=== PATIENT | male | born 1975 ===

== ENCOUNTER 2017-08-25 06:07 | Day surgery (SDC) | payer BC ==
[~2017-08-25] VITALS: Ht 177.8 cm; Wt 82.1 kg
[2017-08-25] VITALS (10 sets, daily range): BP systolic 102–137; BP diastolic 60–75
[2017-08-25 08:09] LABS: BASOPHILS % (AUTO) 0.8 % (0.0-2.0); EOSINOPHILS % (AUTO) 0.1 % (0.0-3.0); LYMPHOCYTES % (AUTO) 20.7 % (20.0-45.0); MEAN CORPUSCULAR HEMOGLOBIN 31.1 PG (27.0-31.0); MEAN CORPUSCULAR HGB CONC 34.7 G/DL (32.0-36.0); MEAN CORPUSCULAR VOLUME 90 FL (80-99); MEAN PLATELET VOLUME 6.8 FL (6.5-10.1); MONOCYTES % (AUTO) 6.5 % (1.0-10.0); NEUTROPHILS % (AUTO) 71.9 % (45.0-75.0); PLATELET COUNT 234 K/UL (150-450); RED BLOOD COUNT 4.82 M/UL (4.70-6.10); RED CELL DISTRIBUTION WIDTH 10.5 % (11.6-14.8); WHITE BLOOD COUNT 7.2 K/UL (4.8-10.8)
[2017-08-25] MEDS ORDERED: Cyclopentolate 1% Opth Sol 2ml ONE (08:34)
[2017-08-25] MEDS ORDERED: Phenylephrine 2.5% Op 2ml Soln ONE (08:34)
[2017-08-25] MEDS ORDERED: Tropicamide 1% Opth 15ml Soln ONE (08:35)
[2017-08-25] MEDS ORDERED: Tetracaine 0.5% Opth 4ml Soln ONE (08:35)
[2017-08-25 08:36] LABS: ALANINE AMINOTRANSFERASE 25 U/L (12-78); ALBUMIN/GLOBULIN RATIO 1.3 (1.0-2.7); ANION GAP 10 mmol/L (5-15); ASPARTATE AMINO TRANSFERASE 21 U/L (15-37); CALCIUM 8.9 MG/DL (8.5-10.1); CARBON DIOXIDE 26 MMOL/L (21-32); CHLORIDE 105 MMOL/L (98-107); CREATININE 0.9 MG/DL (0.55-1.30); GLOMERULAR FILTRATION RATE > 60 mL/min (>60); POTASSIUM 3.7 MMOL/L (3.5-5.1); SODIUM 141 MMOL/L (136-145); TOTAL PROTEIN 7.4 G/DL (6.4-8.2)
[2017-08-25 08:38] LABS: BILIRUBIN,DIRECT 0.2 MG/DL (0.0-0.3)
[2017-08-25] MEDS: Cyclopentolate 1% Opth Sol 2ml RIGHT EYE SCH ×3 (08:39→08:56)
[2017-08-25] MEDS: Tropicamide 1% Opth 15ml Soln RIGHT EYE SCH ×3 (08:41→08:56)
[2017-08-25] MEDS: Phenylephrine 2.5% Op 2ml Soln RIGHT EYE SCH ×3 (08:42→08:56)
[2017-08-25] MEDS: Tetracaine 0.5% Opth 4ml Soln RIGHT EYE SCH ×2 (08:42→08:56)
[2017-08-25 08:56] LABS: INR 1.1 (0.9-1.1); PROTHROMBIN TIME 11.4 SEC (9.30-11.50)
--- NOTE | 2017-08-25 09:40 | Anethesia Preoperative Eval ---
Anesthesia Pre-op PMH/ROS General Date of Evaluation: Aug 25, 2017 Time of Evaluation: 10:15 Anesthesiologist: Natan ASA Score: ASA 1 Mallampati Score Class I : Soft palate, uvula, fauces, pillars visible Class II: Soft palate, uvula, fauces visible Class III: Soft palate, base of uvula visible Class IV: Only hard plate visible Mallampati Classification: Class II Surgeon: pramod Diagnosis: reinal detachment Surgical Procedure: Right eye scleral buckle Anesthesia History: none Family History: no anesthesia problems Allergies: Coded Allergies: No Known Allergies (Unverified , 08/25/17) Past Medical History Cardiovascular: Denies: HTN, CAD, DC, valve dz, arrhythmia, other Pulmonary: Denies: asthma, COPD, CLAUDIA, other Gastrointestinal/Genitourinary: Denies: GERD, CRI, ESRD, other Neurologic/Psychiatric: Denies: dementia, CVA, depression/anxiety, TIA, other Endocrine: Denies: DM, hypothyroidism, steroids, other HEENT: Reports: other - right eye retinal detachment Hematology/Immune: Denies: anemia, DVT, bleeding disorder, other Musculoskeletal/Integumentary: Denies: OA, RA, DJD, DDD, edema, other Anesthesia Pre-op Phys. Exam Physician Exam Last Vital Signs Date Time Temp Pulse Resp B/P (MAP) Pulse Ox O2 Delivery O2 Flow Rate FiO2 08/25/17 07:43 98.2 67 19 137/70 97 Room Air Constitutional: NAD Neurologic: CN 2-12 intact Cardiovascular: RRR Respiratory: CTA Gastrointestinal: S/NT/ND Airway Exam Mallampati Score: Class I MO: full ROM: full Teeth: missing - missing teeth on back left lower bottom, other - chipped tooth top right Dentures: no upper, no lower Anesthesia Pre-op A/P Labs Hematology Test 08/25/17 07:35 White Blood Count 7.2 K/UL (4.8-10.8) Red Blood Count 4.82 M/UL (4.70-6.10) Hemoglobin 15.0 G/DL (14.2-18.0) Hematocrit 43.3 % (42.0-52.0) Mean Corpuscular Volume 90 FL (80-99) Mean Corpuscular Hemoglobin 31.1 PG (27.0-31.0) H Mean Corpuscular Hemoglobin Concent 34.7 G/DL (32.0-36.0) Red Cell Distribution Width 10.5 % (11.6-14.8) L Platelet Count 234 K/UL (150-450) Mean Platelet Volume 6.8 FL (6.5-10.1) Neutrophils (%) (Auto) 71.9 % (45.0-75.0) Lymphocytes (%) (Auto) 20.7 % (20.0-45.0) Monocytes (%) (Auto) 6.5 % (1.0-10.0) Eosinophils (%) (Auto) 0.1 % (0.0-3.0) Basophils (%) (Auto) 0.8 % (0.0-2.0) Coagulation Test 08/25/17 07:35 Prothrombin Time 11.4 SEC (9.30-11.50) Prothromb Time International Ratio 1.1 (0.9-1.1) Activated Partial Thromboplast Time 29 SEC (23-33) Chemistry Test 08/25/17 07:35 Sodium Level 141 MMOL/L (136-145) Potassium Level 3.7 MMOL/L (3.5-5.1) Chloride Level 105 MMOL/L (98-107) Carbon Dioxide Level 26 MMOL/L (21-32) Anion Gap 10 mmol/L (5-15) Blood Urea Nitrogen 9 mg/dL (7-18) Creatinine 0.9 MG/DL (0.55-1.30) Estimat Glomerular Filtration Rate > 60 mL/min (>60) Glucose Level 84 MG/DL (74-106) Calcium Level 8.9 MG/DL (8.5-10.1) Total Bilirubin 1.1 MG/DL (0.2-1.0) H Direct Bilirubin 0.2 MG/DL (0.0-0.3) Aspartate Amino Transf (AST/SGOT) 21 U/L (15-37) Alanine Aminotransferase (ALT/SGPT) 25 U/L (12-78) Alkaline Phosphatase 60 U/L (46-116) Total Protein 7.4 G/DL (6.4-8.2) Albumin 4.2 G/DL (3.4-5.0) Globulin 3.2 g/dL Albumin/Globulin Ratio 1.3 (1.0-2.7) Studies Pre-op Studies: EKG - NSR 68 BPM with sinus arhythmias Risk Assessment & Plan Assessment: A&Ox3 Plan: General per surgeon request Status Change Before Surgery: No Pre-Antibiotics Given Within 1 Hr of Incision: Consuelo Santana CONTRACTING ANALYST Aug 25, 2017 09:40
--- NOTE | 2017-08-25 09:41 | Immediate Post-Op Evaluation ---
Immediate Post-Op Evalulation Immediate Post-Op Evalulation Procedure: Right eye scleral buckle Date of Evaluation: Aug 25, 2017 Time of Evaluation: 12:10 IV Fluids: LR Blood Products: 0 Estimated Blood Loss: 5ml Urinary Output: no turner Blood Pressure Systolic: 103 Blood Pressure Diastolic: 71 Pulse Rate: 72 Respiratory Rate: 14 O2 Sat by Pulse Oximetry: 99 Temperature (Fahrenheit): 98 Pain Score (1-10): 0 Nausea: No Vomiting: No Complications none Patient Status: awake, reacts, patent Hydration Status: adequate Given Within 1 Hr of Incision: Consuelo Santana CRNA Aug 25, 2017 09:41
--- NOTE | 2017-08-25 09:42 | 48 Hour Post Anesthesia Eval ---
Post Anesthesia Evaluation Procedure: Right eye scleral buckle Date of Evaluation: Aug 25, 2017 Time of Evaluation: 12:52 Blood Pressure Systolic: 108 0: 70 Pulse Rate: 72 Respiratory Rate: 17 Temperature (Fahrenheit): 98 O2 Sat by Pulse Oximetry: 100 Airway: patent Nausea: No Vomiting: No Pain Intensity: 0 Hydration Status: adequate Cardiopulmonary Status: WNL Mental Status/LOC: patient returned to baseline Post-Anesthesia Complications: none Follow-up care needed: patient intructions given Consuelo Gama CRNA Aug 25, 2017 09:42
--- NOTE | 2017-08-25 09:48 | Pre-Procedure Note/Attestation ---
Pre-Procedure Note/Attestation Complete Prior to Procedure Planned Procedure: right Procedure Narrative: RRD OD plan for SB/Cryo/Gas OD Indications for Procedure Pre-Operative Diagnosis: RRD OD Attestation I attest that I discussed the nature of the procedure; its benefits; risks and complications; and alternatives (and the risks and benefits of such alternatives ), prior to the procedure, with the patient (or the patient's legal food service sales representatives). I attest that, if there was a reasonable possibility of needing a blood transfusion, the patient (or the patient's legal food service sales representatives) was given the [facility] standardized written summary, pursuant to the [place] Blood Safety Act ([place] Health and Safety Code # 1645, as amended). I attest that I re-evaluated the patient just prior to the surgery and that there has been no change in the patient's H&P, except as documented below: Nahid Woodard M.D. Aug 25, 2017 09:48
--- NOTE | 2017-08-25 09:50 | Operative Note - PDOC ---
Operative Note Operative Note Pre-op Diagnosis: RRD OD Procedure: SB/Cryo/Gas OD Post-op Diagnosis: Same Surgeon: Yamilet Anesthesia: general Specimen: none Complications: none Condition: stable Fluids: Minimal Estimated Blood Loss: minimal Drains: none Implant(s) used?: Yes - SB/Sleeve Indications for Procedure Location: [facility] [place] Pre-operative Diagnosis: 1. 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 Anesthesia: General anesthesia Complications: None Indications for the procedure: The patient was found to have retinal detachment. She presents today for surgery after review of the risks, benefits, alternative and signing informed consent into the medical chart. Description of Procedure Procedure performed: The patient was met in the pre-op area where informed consent was reviewed. The operative eye was verified, marked and dilated. The patient was transferred to the operative suite, where cardiopulmonary monitoring was established and general anesthesia was administered without complications. The eye was prepped and draped in sterile ophthalmic fashion. A lid speculum was placed. Under direct visualization, the conjunctiva was opened and the quadrants were dissected. The rectus muscles were isolated and hooked with silk sutures. The quadrants were inspected and no scleral defects were noted. The retina was examined by indirect ophthalmoscopy. Of note, the cornea was hazy due to progressive corneal edema during surgery. The retinal breaks were identified and cryo was applied to the holes within the detachment (superotemporal) and inferonasal hole; inspection of the periphery revealed multiple other areas of lattice (visualization at this point was limited due to corneal edema). The sclera was marked at the area of the retinal break superiorly. The 41 band was encircled around the globe with its ends attached in the superonasal quadrant with the 72 sleeve. The buckle was sutured to the sclera with 5-0 nylon sutures at 4mm posterior to the muscle insertions in all 4 quadrants at the level of the breaks that were marked on the sclera.The buckle was pulled flush against the globe, then 8mm beyond flush. Inspection of the fundus revealed that the indentation of the buckle supported the break adequately. The anterior chamber was tapped to reduce the intraocular pressure. SF6 gas was injected into the eye and the anterior chamber was tapped again to reduce the intraocular pressure. Inspection of the posterior pole revealed normal perfusion with intravitreal gas bubble. The buckle ends were trimmed. The stay sutures were removed, the conjunctiva was pulled into place and closed with 5-0 plain gut sutures. Additional peribulbar anesthesia was administered. Subconjunctival vancomycin and dexamethasone were administered. The lid speculum was removed. The eye was cleaned of prep and drape. Atropine drop and Maxitrol ointment was applied. A pressure patch was placed. The patient was turned over to the anesthesia team, extubated and transferred in stable condition to the PACU. Nahid Woodard M.D. Aug 25, 2017 09:50
--- NOTE | 2017-08-25 09:50 | Brief Operative Note ---
Immediate Post Operative Note Operative Note Pre-op Diagnosis: RRD OD Procedure: SB/Cryo/Gas OD Post-op Diagnosis: Same Surgeon: Yamilet Anesthesia: general Specimen: none Complications: none Condition: stable Fluids: Minimal Estimated Blood Loss: minimal Drains: none Implant(s) used?: Yes - Nahid Prince M.D. Aug 25, 2017 09:50
[2017-08-25] MEDS ORDERED: Midazolam 2mg/2ml Inj ONE (10:00)
[2017-08-25] MEDS ORDERED: Propofol 200mg/20ml IV ONE (10:00)
[2017-08-25] MEDS ORDERED: Glycopyrrolate 0.2mg/ml 1ml Vial ONE (10:00)
[2017-08-25] MEDS ORDERED: NS Irrig 1000ml ONE (10:00)
[2017-08-25] MEDS ORDERED: LR 1000ml ONE (10:00)
[2017-08-25] MEDS ORDERED: fentaNYL 100 mcg/2 mL IV ONE (10:00)
[2017-08-25] MEDS ORDERED: Ketorolac 30mg Inj ONE (10:00)
[2017-08-25] MEDS ORDERED: Metoclopramide 10mg/2ml Inj ONE (10:00)
[2017-08-25] MEDS ORDERED: Sterile Water Irrig 1000ml IRRIG ONE (10:00)
[2017-08-25] MEDS ORDERED: Pred Forte 1% Opth Susp 1ml ONE (10:14)
[2017-08-25] MEDS ORDERED: BSS 500ml btl ONE (10:14)
[2017-08-25] MEDS ORDERED: Maxitrol Opth Oint 3.5gm ONE (10:15)
[2017-08-25] MEDS ORDERED: Dexamethasone 4mg/ml vial ONE (10:15)
[2017-08-25] MEDS ORDERED: Povidone-Iodine 5% opth solution ONE (10:15)
[2017-08-25] MEDS ORDERED: Lidocaine 2% MPF 5ml Vial INJ ONE (10:16)
[2017-08-25] MEDS ORDERED: Goniosol 2.5% Opth Soln - 15ml ONE (10:16)
[2017-08-25] MEDS ORDERED: BSS 15ml BTL ONE (10:16)
[2017-08-25] MEDS ORDERED: Bupivacaine 0.75% 30ml vial INJ ONE (10:16)
[2017-08-25] MEDS ORDERED: EPINEPHrine 1mg/1ml Amp ONE (10:16)
[2017-08-25] MEDS ORDERED: Hydromorphone 0.5mg/0.5ml inj IVP PRN (11:45)
[2017-08-25] MEDS ORDERED: Norco 5mg/325mg tab ORAL ONE (13:30)
--- NOTE | 2017-08-25 16:15 | Pre-op HX & Phy Repo 2 SIG ---
DATE OF ADMISSION: 08/25/2017 REASON FOR EVALUATION: I was asked by Dr. Woodard to see this 42-year-old male, who is going for elective surgery on the right eye. The patient has detachment of retina, right eye. Please see full history by confectionery laboratory manager, Dr. Jr Woodard. The patient was evaluated. Chart was reviewed. PAST MEDICAL HISTORY/REVIEW OF SYSTEMS: Denies history of chest pain, palpitation, or heart attack. No history of hypertension or diabetes. No history of stroke or seizures. No history of respiratory problem. No asthma or bronchitis. No history of GI bleeding, ulcer disease, or heartburn. No history of hepatitis. No history of anemia or thyroid problem. No history of renal failure. No fevers. No weight loss or gain. ALLERGIES: Not known. MEDICATIONS: None. HABITS: The patient smoked in the distant past for 5 years. Alcohol, socially. No street drugs. FAMILY HISTORY: Unknown. PHYSICAL EXAMINATION: GENERAL: Alert, well developed, well nourished male, in his 40s, no distress. VITAL SIGNS: Blood pressure 167/70, temperature 98.4 degrees, heart rate regular at 67 per minute, respirations 20, and O2 saturation 97% on room air. SKIN: Warm and dry. No jaundice. No rashes. LYMPHATICS: Lymph nodes not enlarged. HEENT: Head, normocephalic and atraumatic. Ears, clear. Eyes, full description per Dr. Jr Woodard. Mouth, clear and moist, no dentures. NECK: No jugular vein distention. Carotid artery +2. No palpable mass. Thyroid gland not enlarged. CHEST: No deformity or asymmetry. LUNGS: Clear to auscultation and percussion. No rales or rhonchi. HEART: Sinus rhythm. No ectopy. No murmur. No S3 or S4. No cardiomegaly. ABDOMEN: Soft and benign. Liver and spleen not enlarged. EXTREMITIES: No peripheral edema or varicose veins. GENITOURINARY: Normal for gender. No CVA tenderness. No dysuria. NERVOUS SYSTEM: No tremor. No nystagmus. No asymmetry. LABORATORY AND DIAGNOSTIC DATA: Electrocardiogram, normal sinus rhythm at 66 beats per minute, normal ECG. Laboratory work obtained with pending results. The patient's last p.o. intake 6 p.m. yesterday. IMPRESSION: Retinal detachment, right eye. PLAN: Scleral buckle right eye per Dr. Jr Woodard. CONCLUSION: The patient's vital signs stable. Laboratory work pending. The patient did not eat or drink from last night. The patient's condition optimized for surgery. Yolanda Bernal M.D. DR: EDY JOB#: [id number] CC:
--- NOTE | 2017-08-29 15:49 | Cardiology Report ---
APPROVED REPORT EKG Measurement Heart [id number] Normal sinus rhythm with sinus arrhythmia Normal ECG
== END 2017-08-25 15:00 | disposition home or self-care (01) ==
LOC: SUR 06:07
DX: H33.001 Unspecified retinal detachment with retinal break, right eye (principal); I49.9 Cardiac arrhythmia, unspecified
CPT/HCPCS: 36415; 67107; 80053; 82248; 85025; 85610; 85730; 93005; J0171; J1100; J1885; J2250; J2405; J2704; J2765; J3010; J3370; J3490; J7120; 94003; 94150

== ENCOUNTER 2017-09-02 18:00 | Emergency (ER) | payer BC ==
[~2017-09-02] VITALS: Ht 177.8 cm; Wt 83.0 kg
[2017-09-02 18:14] VITALS: BP 143/88
--- NOTE | 2017-09-02 18:17 | Emergency Room Report ---
History of Present Illness General Chief Complaint: Dizziness Source: Patient Present Illness [facility] The patient is a 42-year-old male presenting for feeling of palpitations and dizziness. He states that he had right retinal attachment surgery approximately one week prior. He denies any other medical conditions. The symptoms began together and lasted approximately one hour. He spoke with his doctor who said he may be dehydrated. The patient then drank copious amounts of water and states he felt better. He states that this may be due to anxiety but has never been diagnosed with anxiety disorder. He states that he has been under a lot of stress due to the recent surgery. He denies any other symptoms including nausea, vomiting, fever, chills, shortness of breath, chest pain, ear pain Allergies: Coded Allergies: No Known Allergies (Unverified , 08/25/17) Patient History Past Medical History: see triage record Pertinent Family History: none Reviewed Nursing Documentation: PMH: Agreed, PSxH: Agreed Nursing Documentation-PMH Past Medical History: No History, Except For Hx Cancer: No Hx Gastrointestinal Problems: No Hx Neurological Problems: No Review of Systems All Other Systems: negative except mentioned in HPI Physical Exam Vital Signs Date Time Temp Pulse Resp B/P (MAP) Pulse Ox O2 Delivery O2 Flow Rate FiO2 09/02/17 18:04 98.2 68 16 148/78 98 Room Air Sp02 EP Interpretation: reviewed, normal General Appearance: no apparent distress, alert, GCS 15, non-toxic Head: normocephalic, atraumatic Eyes: right eye Scleral Injection, right eye other - pupil dilated, bilateral eye EOMI ENT: hearing grossly normal, normal pharynx, no angioedema, normal voice, TMs + canals normal, uvula midline Neck: full range of motion, supple/symm/no masses Respiratory: chest non-tender, lungs clear, normal breath sounds, no wheezing, speaking full sentences Cardiovascular #1: regular rate, rhythm, no edema Gastrointestinal: normal bowel sounds, non tender, soft, non-distended, no guarding, no rebound Genitourinary: normal inspection, no CVA tenderness Musculoskeletal: back normal, gait/station normal, normal range of motion, non- tender Neurologic: alert, oriented x3, responsive, motor strength/tone normal, sensory intact, speech normal Psychiatric: judgement/insight normal, memory normal, mood/affect normal, no suicidal/homicidal ideation Skin: normal color, no rash, warm/dry, well hydrated Medical Decision Making PA Attestation Dr. Yoo is my supervising physician. Patient management was discussed with my supervising physician Diagnostic Impression: Primary Impression: Dizziness ER Course The patient is a 42-year-old male presenting for feeling of palpitations and dizziness. Differential diagnoses considered but not limited to: Benign positional vertigo , positional hypotension, labyrinthitis, Mnire's disease, dehydration, anemia , among others PE: No apparent distress. A&Ox4 HEENT: R eye has injection and pupil dilated. EOMI. Bilat TM intact, no erythema or bulging RRR. No MRG Lungs CTA bilat Abdomen: Normal appearance. Non distended. No ecchymosis. Normal BS. Non TTP. No McBurney point tenderness. No guarding. Skin is warm and dry, no rashes. EKG unremarkable. No acute changes. Normal sinus rhythm Blood work is unremarkable The patient will be discharged home and is told he needs to followup with his primary doctor and bedspread inspector. This is most likely from anxiety. ER precautions are given Laboratory Tests Test 09/02/17 18:20 White Blood Count 8.4 K/UL (4.8-10.8) Red Blood Count 4.74 M/UL (4.70-6.10) Hemoglobin 14.2 G/DL (14.2-18.0) Hematocrit 42.0 % (42.0-52.0) Mean Corpuscular Volume 89 FL (80-99) Mean Corpuscular Hemoglobin 29.9 PG (27.0-31.0) Mean Corpuscular Hemoglobin Concent 33.7 G/DL (32.0-36.0) Red Cell Distribution Width 10.2 % (11.6-14.8) L Platelet Count 235 K/UL (150-450) Mean Platelet Volume 6.3 FL (6.5-10.1) L Neutrophils (%) (Auto) 75.6 % (45.0-75.0) H Lymphocytes (%) (Auto) 16.8 % (20.0-45.0) L Monocytes (%) (Auto) 6.4 % (1.0-10.0) Eosinophils (%) (Auto) 0.1 % (0.0-3.0) Basophils (%) (Auto) 1.2 % (0.0-2.0) Urine Color Pale yellow Urine Appearance Clear Urine pH 7 (4.5-8.0) Urine Specific Percival 1.005 (1.005-1.035) Urine Protein Negative (NEGATIVE) Urine Glucose (UA) Negative (NEGATIVE) Urine Ketones Negative (NEGATIVE) Urine Occult Blood Negative (NEGATIVE) Urine Nitrite Negative (NEGATIVE) Urine Bilirubin Negative (NEGATIVE) Urine Urobilinogen Normal MG/DL (0.0-1.0) Urine Leukocyte Esterase Negative (NEGATIVE) Sodium Level 138 MMOL/L (136-145) Potassium Level 3.4 MMOL/L (3.5-5.1) L Chloride Level 100 MMOL/L (98-107) Carbon Dioxide Level 26 MMOL/L (21-32) Anion Gap 12 mmol/L (5-15) Blood Urea Nitrogen 7 mg/dL (7-18) Creatinine 0.9 MG/DL (0.55-1.30) Estimate Glomerular Filtration Rate > 60 mL/min (>60) Glucose Level 97 MG/DL (74-106) Calcium Level 9.1 MG/DL (8.5-10.1) Total Bilirubin 0.6 MG/DL (0.2-1.0) Aspartate Amino Transferase (AST) 17 U/L (15-37) Alanine Aminotransferase (ALT) 19 U/L (12-78) Alkaline Phosphatase 57 U/L (46-116) Troponin I < 0.017 ng/mL (0.000-0.056) Total Protein 7.5 G/DL (6.4-8.2) Albumin 4.4 G/DL (3.4-5.0) Globulin 3.1 g/dL Albumin/Globulin Ratio 1.4 (1.0-2.7) Urine Opiates Screen Negative (NEGATIVE) Urine Barbiturates Screen Negative (NEGATIVE) Phencyclidine (PCP) Screen Negative (NEGATIVE) Urine Amphetamines Screen Negative (NEGATIVE) Urine Benzodiazepines Screen Negative (NEGATIVE) Urine Cocaine Screen Negative (NEGATIVE) Urine Marijuana (THC) Screen Negative (NEGATIVE) Lab Results Impression all unremarkable EKG Diagnostic Results EP Interpretation: NSR. No acute changes Rate: normal - 65 Rhythm: NSR ST Segments: no acute changes ASA given to the pt in ED: No PA Scribe Text EKG was reviewed and read with my supervising physician. No acute ST segment changes are seen. Normal rate and rhythm. No acute changes. Last Vital Signs Date Time Temp Pulse Resp B/P (MAP) Pulse Ox O2 Delivery O2 Flow Rate FiO2 09/02/17 18:04 98.2 68 16 148/78 98 Room Air Status: improved Disposition: HOME, SELF-CARE Condition: Improved DEBRA SUN Sep 02, 2017 18:17
[2017-09-02 19:32] LABS: APPEARANCE,URINE CLEAR; KETONES,URINE NEGATIVE (NEGATIVE); LEUKOCYTE ESTERASE ,URINE NEGATIVE (NEGATIVE); NITRITE,URINE NEGATIVE (NEGATIVE); PH,URINE 7 (4.5-8.0); PROTEIN,URINE NEGATIVE (NEGATIVE); UROBILINOGEN,URINE NORMAL MG/DL (0.0-1.0)
[2017-09-02 19:35] LABS: ANION GAP 12 mmol/L (5-15); CALCIUM 9.1 MG/DL (8.5-10.1); CARBON DIOXIDE 26 MMOL/L (21-32); CHLORIDE 100 MMOL/L (98-107); CREATININE 0.9 MG/DL (0.55-1.30); GLOMERULAR FILTRATION RATE > 60 mL/min (>60); POTASSIUM 3.4 MMOL/L (3.5-5.1); SODIUM 138 MMOL/L (136-145)
[2017-09-02 19:40] LABS: ALANINE AMINOTRANSFERASE 19 U/L (12-78); ALBUMIN/GLOBULIN RATIO 1.4 (1.0-2.7); ASPARTATE AMINO TRANSFERASE 17 U/L (15-37); TOTAL PROTEIN 7.5 G/DL (6.4-8.2)
[2017-09-02 19:51] VITALS: BP 142/88
[2017-09-02 19:56] LABS: BASOPHILS % (AUTO) 1.2 % (0.0-2.0); EOSINOPHILS % (AUTO) 0.1 % (0.0-3.0); LYMPHOCYTES % (AUTO) 16.8 % (20.0-45.0); MEAN CORPUSCULAR HEMOGLOBIN 29.9 PG (27.0-31.0); MEAN CORPUSCULAR HGB CONC 33.7 G/DL (32.0-36.0); MEAN CORPUSCULAR VOLUME 89 FL (80-99); MEAN PLATELET VOLUME 6.3 FL (6.5-10.1); MONOCYTES % (AUTO) 6.4 % (1.0-10.0); NEUTROPHILS % (AUTO) 75.6 % (45.0-75.0); PLATELET COUNT 235 K/UL (150-450); RED BLOOD COUNT 4.74 M/UL (4.70-6.10); RED CELL DISTRIBUTION WIDTH 10.2 % (11.6-14.8); WHITE BLOOD COUNT 8.4 K/UL (4.8-10.8)
[2017-09-02 20:06] VITALS: BP 142/88
--- NOTE | 2017-09-05 15:36 | Cardiology Report ---
APPROVED REPORT EKG Measurement Heart [id number] Normal sinus rhythm Cannot rule out Anterior infarct, age undetermined Abnormal ECG
== END 2017-09-02 20:05 | disposition home or self-care (01) ==
LOC: EMR 18:17
DX: R42 Dizziness and giddiness (principal); R00.2 Palpitations
CPT/HCPCS: 36415; 80053; 80307; 81003; 84484; 85025; 93005; 96361; 96374; 99284